=== PATIENT | female | born 1990 | race Two or more races ===

== ENCOUNTER → 2024-10-01 | Outpatient (CLI) | payer OTHER, SELFPAY ==
--- NOTE | 2024-10-01 08:45 | XR_ITS ---
Examination: Screening digital mammography, bilateral Computer aided detection 3-D breast Tomosynthesis, bilateral Date and time of exam: October 01, 2024 0827 hours No priors Indication: Screening, family history, mother breast cancer Technique: Nonmagnified MLO, CC views of the breasts to been obtained, reconstructed from 3-D Tomosynthesis images. R2 computer aided detection program utilized for evaluation of suspicious masses and/or abnormal calcifications. 3-D Tomosynthesis images obtained. Findings: Scattered areas of fibroglandular density Benign calcifications 4 mm circumscribed asymmetry inner right breast CC view, 5 cm from the nipple Impression: BI-RADS Category 0: Incomplete: Need additional imaging evaluation 4 mm circumscribed focal asymmetry inner right breast CC view, recommend follow-up spot tomographic views in her upper quadrant right breast bilateral breast sonography to complete workup
== END | disposition home or self-care (01) ==
LOC: CDIM 08:14
PROVIDERS: PCP Physician Assistant; Referring Provider Physician Assistant; Visit Provider Physician Assistant
DX: Z12.31 Encounter for screening mammogram for malignant neoplasm of breast (principal); N64.89 Other specified disorders of breast
CPT/HCPCS: 77063; 77067

== ENCOUNTER 2024-12-06 16:09 | Emergency (ER) | payer OTHER, SELFPAY ==
[2024-12-06 16:09] VITALS: BMI 31.8
[2024-12-06 16:21] VITALS: BP 126/78; PULSE 108; RESP 16; TEMP 37.1; O2SAT 97
--- NOTE | 2024-12-06 17:05 | EDNOTE_ITS ---
<Statement entered by Keshia Narvaez MD - 12/09/24 14:04> As co-signing physician, I was present and available for consult prn. I concur with the plan and care as documented by the midlevel provider. Upper Respiratory Inf. RME/HPI General Chief Complaint: Flu Like Symptoms Stated Complaint: cough x 3 days Time Seen by Provider: 12/06/24 16:15 Source: patient Arrival date/time: 12/06/24 16:09 34-year-old female presents emergency department complaints of generalized sore throat for 3 days. Patient does not have any fever, she does have some upper chest burning that runs into her throat. Patient did not attempt any interventions or take any OTC medications prior to ED visit. Patient denies any other associated symptoms or aggravating factors. No modifying factors, no radiation, no migration. Mode of arrival: ambulatory Limitations: no limitations Related Data Home Medications ?Medication ?Instructions ?Recorded ?Confirmed diphenhydramine HCl 25 mg tablet 25 mg PO QHS PRN 08/2909/13/23 ([facility]) Previous Rx's ?Medication ?Instructions ?Recorded omeprazole 40 mg capsule,delayed 40 mg PO QDAY #30 cap s 12/06/24 release Allergies Allergy/AdvReac Type Severity Reaction Status Date / Time NKA* Allergy Uncoded 12/06/24 16:13 Review of Systems Review of Systems Systems Reviewed: All systems reviewed, normal except as documented Narrative Review of Systems: Gen: No fever, no chills, no weight loss EYES: No discharge, no visual changes, no pain HEENT: No ear pain, no congestion, + sore throat PULM: No shortness of breath, + cough, no congestion CV: No chest pain, no dyspnea on exertion, no palpitations GI: No nausea, no vomiting, no diarrhea, no pain, no constipation : No frequency, no urgency,? no dysuria Musc/skel: No joint pain, no back pain Skin: No rash? Psyc: No hallucinations, no depression Heme/Lymph: No easy bleeding or bruising tendencies Neuro: No weakness, no headache ED Exam General Limitations: Present no limitations General appearance: Present alert and in no apparent distress Head Head exam: Present atraumatic Eye Eye exam: Present normal appearance, PERRL and EOMI ENT ENT exam: Present normal exam, normal oropharynx and mucous membranes moist Neck Neck exam: Present normal inspection, full ROM and trachea midline Chest Chest inspection: Present normal inspection and symmetric chest wall rise Respiratory Respiratory exam: Present normal lung sounds bilaterally Cardiovascular Cardiovascular exam: Present regular rate, normal rhythm and normal heart sounds Abdominal Exam Abdominal exam: Present soft and normal bowel sounds Extremities Exam Extremities exam: Present normal inspection and full ROM Back Exam Back exam: Present normal inspection and full ROM Neurological Exam Neurological exam: Present alert, oriented X3 and CN II-XII intact Psychiatric Psychiatric exam: Present normal affect and normal mood Skin Skin exam: Present warm, dry, intact and normal color Course Quality Measures none Orders Category Date Time Status Bedside COVID-19 Antigen Test NOW Care 12/06/24 16:39 Completed Bedside Influenza A&B Antigen Test NOW Care 12/06/24 16:39 Completed Strep A Rapid Stat Lab 12/06/24 16:43 Completed Vital Signs Vital signs: Vital Signs Temperature 98.8 F 12/06/24 16:21 Pulse Rate 108 H 12/06/24 16:21 Respiratory Rate 16 12/06/24 16:21 Blood Pressure 126/78 12/06/24 16:21 Pulse Oximetry (%) 97 12/06/24 16:21 Oxygen Delivery Method Room Air 12/06/24 16:21 Upper Respiratory Infection Patient data External records reviewed:: [facility] previous records Clinical information provided by:: patient Social determinants that could affect healthcare access:: none Patient has the following chronic illnesses:: no How is presenting disease/condition affected by chronic disease/condition?: no chronic disease Evaluation data The following diagnostics were reviewed and interpreted by me:: lab results Lab and/or radiology exams considered but not ordered:: no Interpretation Summary: Negative COVID and influenza test Strep steps Medications / Prescriptions Medications or Prescriptions considered but not ordered:: No Medication administrations:: No Consultations Consultation(s) initiated? (list below): No Diagnosis Upper Respiratory Differential Diagnosis: upper respiratory infection, viral infection, bronchitis, influenza and pharyngitis Most likely diagnosis given after review of the tests above:: Sore throat Admission Indicated Admission indicated?: not indicated Admission Request Was there a request for admission?: No Disposition Plan Disposition Plan: Discharge Discharge Attestation Discharge Attestation: The patient and all family members were given an opportunity to ask questions and understood the discharge instructions. Discharge instructions specifically effects, indications for sooner follow up or return to the emergency department, and the expected course of current diagnosis. Patient condition: Stable Discharge Plan Plan Patient Disposition: HOME (Self Care) Patient condition on transfer: Stable Prescriptions/Referrals Prescriptions/Med Rec: New omeprazole 40 mg capsule,delayed release(DR/EC) 40 mg PO QDAY Qty: 30 0RF No Action diphenhydramine HCl [[facility]] 25 mg tablet 25 mg PO QHS PRN Referrals: Ariela Chew PA-C [Primary Care Provider] - In 1 week Problem List Clinical Impression: Acute viral pharyngitis Patient/Caregiver Discharge Instructions Discharge Activity: activity as tolerated Education Materials: Self-Care for Sore Throats Additional Instructions: .Can use OTC NSAID prn pain or fevers. Fluids, soups, tea, honey advised. Use humidifier at nights. Replace toothbrush. -Can also use Mucinex [id number] -Also start topical which can soothe your throat follow up if symptoms persist / worsen over next 2-3 days. Return to the emergency department is any worsening symptoms change in condition. Print Language: Icelandic Stand Alone Forms: Myra Award Info., Patient Portal Info Letter PA/JAMIE Supervising Physician PERRY/JAMIE Supervising Physician: Dr. Mcmillan
[2024-12-06 17:22] LABS: Strep A Rapid Negative (Negative)
== END 2024-12-06 17:58 | disposition home or self-care (01) ==
PROVIDERS: Nurse Practitioner Primary Care; Emergency Provider Emergency Medicine; PCP Physician Assistant
DX: J02.8 Acute pharyngitis due to other specified organisms (principal); B97.89 Other viral agents as the cause of diseases classified elsewhere
CPT/HCPCS: 87400; 87651; 87811; 99283

== ENCOUNTER 2024-12-29 14:10 | Outpatient (RCR) | payer OTHER, SELFPAY ==
--- NOTE | 2024-12-31 04:51 | CTCCONSULT_ITS ---
Patient: MELYSSA RICHARDS : 1990 MR#: [id number] Page 2 of 2 CONSULTATION NOTE DATE OF CONSULTATION: 12/29/2024 NAME: MELYSSA RICHARDS ACCOUNT: [id number] : 1990 AGE: 34 REFERRING PHYSICIAN: Ariela Chew MD PRIMARY PHYSICIAN: Ariela Chew MD HISTORY OF PRESENT ILLNESS: 34-year-old female is referred for family history of breast cancer. Patient was a no-show for her in person visit and was changed to telephone appointment. 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 None Medications Never Reconciled (Reconcile on Approval: ?) ALLERGIES: ASSESSMENT/PLAN: Family history of breast cancer Will refer patient to genetic testing and BRCA1 and BRCA2 testing Patient advised to follow-up with us after she has completed testing and also follow-up with the genetics for counseling Advised her to undergo diagnostic testing for both breasts with the diagnostic mammogram Will make further recommendation after receiving the genetic testing results ORDERS: Hereditary myRisk assessment BRCA 1 and 2 testing Bilateral diagnostic mammogram RETURN TO CLINIC: I will see her back in the clinic in 2 months. BILLING AND COMPLIANCE: I reviewed external records from providers outside my specialty as summarized above. I spent a total of 50 minutes on this patient?s care on the day of their visit excluding time spent related to any billed procedures. This time includes time spent with the patient as well as time spent documenting in the medical record, reviewing patients records and tests, obtaining history, placing orders, communicating with other healthcare professionals, counseling the patient, family or caregiver, and/or care coordination for the diagnoses above. Electronically Signed by: {Object.Sanct_ID*[email or web address]@M}, {Object.Sanct_ID*PnP.Suffix@U} D: {Object.Sanct_Date} T: {Object.Sanct_Time} CC: PCP: Ariela Chew Referring: Ariela Chew This document was completed utilizing speech recognition software. Grammatical errors, random word insertions, pronoun errors, and incomplete sentences are an occasional consequence of this system due to software limitations, ambient noise, and hardware issues. Any formal questions or concerns about the content, text or information contained within the body of this dictation should be directly addressed to the provider for clarification.
== END 2025-01-26 23:59 | disposition home or self-care (01) ==
LOC: SCTC 14:10
PROVIDERS: PCP Physician Assistant; Referring Provider Physician Assistant; Visit Provider Internal Medicine Hematology & Oncology
DX: Z76.89 Persons encountering health services in other specified circumstances (principal); Z80.3 Family history of malignant neoplasm of breast
CPT/HCPCS: 99212; G0463

== ENCOUNTER → 2025-01-21 | Outpatient (CLI) | payer OTHER, SELFPAY ==
--- NOTE | 2025-01-21 | XR_ITS ---
Examination: Diagnostic digital mammography, unilateral, right Computer aided detection 3-D breast Tomosynthesis, unilateral Date and time of exam: January 21 thousand 25 1615 hours INDICATIONS: Mammogram October 01, 2024 4 mm circumscribed focal asymmetry inner right breast CC view Technique: Nonmagnified MLO, CC views of the right breast have been obtained, reconstructed from 3-D Tomosynthesis images. R2 computer aided detection program utilized for evaluation of suspicious masses and/or abnormal calcifications. 3-D Tomosynthesis images obtained. Findings: Scattered areas of fibroglandular density No suspicious mass is noted on the spot compression views Impression: BI-RADS category 2: Benign findings Recommend yearly follow-up mammography
--- NOTE | 2025-01-21 16:13 | XR_ITS ---
Examination: Breast ultrasound complete, bilateral Date and time of exam: January 21, 2025 1620 hours INDICATIONS: Mammogram October 01, 2024 4 mm circumscribed asymmetry inner right breast, family history breast cancer Technique: Real-time grayscale ultrasonographic imaging bilateral breasts, including all 4 quadrants as well as nipple retroareolar and axillary regions. Findings: Sonographic images right breast No cystic or solid mass Sonographic images left breast No cystic or solid mass IMPRESSION: BI-RADS Category 1: Negative study
== END | disposition home or self-care (01) ==
PROVIDERS: PCP Physician Assistant; Referring Provider Internal Medicine Hematology & Oncology; Visit Provider Internal Medicine Hematology & Oncology
DX: R92.321 Mammographic fibroglandular density, right breast (principal); Z80.3 Family history of malignant neoplasm of breast
CPT/HCPCS: 76641; 77061; 77065; G0279

== ENCOUNTER → 2025-01-29 | Outpatient (CLI) | payer OTHER, SELFPAY ==
--- NOTE | 2025-01-29 15:31 | XR_ITS ---
Examination: Knee, left , 3 views Technique: Knee AP, lateral, oblique 3 views Date and time of exam: January 29, 2025 1532 hours INDICATIONS: Injury to the knee 3 days ago, knee pain FINDINGS: No fracture or dislocation Sclerotic areas in the fibular shaft No foreign body IMPRESSION: No fracture or dislocation Recommend 3 month follow-up left knee to document stability of sclerotic change in the proximal fibular shaft
== END | disposition home or self-care (01) ==
PROVIDERS: PCP Physician Assistant; Referring Provider Nurse Practitioner Family; Visit Provider Nurse Practitioner Family
DX: S89.92XA Unspecified injury of left lower leg, initial encounter (principal); X58.XXXA Exposure to other specified factors, initial encounter
CPT/HCPCS: 73562

== ENCOUNTER → 2025-02-24 | Outpatient (CLI) | payer OTHER, SELFPAY ==
--- NOTE | 2025-02-24 12:00 | XR_ITS ---
Exam: MRI knee without contrast, left Date and time of exam: February 24, 2025 1251 hours INDICATIONS: Injury to the knee January 29, 2025 with joint clicking and pain Technique: Multiple axial, coronal, and sagittal sections on the knee have been obtained. T2-Weighted sagittal, fat-suppressed images, TR 3,500, TE 62, T2 weighted coronal fat-saturated images, TR 3,500, TE 62 Proton density sagittal sections, TR 1800, TE 31. T-1 weighted coronal images, TR 524, TE 13.0 Findings: Medial meniscus anterior horn intact. Medial meniscus, body is intact. Posterior horn medial meniscus intact. Lateral meniscus anterior horn is intact Lateral meniscus, body is intact Posterior horn lateral meniscus is intact Anterior cruciate ligament moderate sprain Posterior cruciate ligament appears intact. Knee effusion is small. Quadriceps and patellar tendons appear intact. There is no evidence of tendinosis. Inflammatory change or fracture of Hoffa's fat pad is not seen. Medial patellar facet demonstrates mild thinning. Lateral patellar facet cartilage demonstrates mild thinning. Trochlear cartilage demonstrates mild thinning. Full-thickness fissure defect in the cartilage medial patellar and at the median eminence Marrow signal adequate. Medial collateral ligament appears intact. No meniscocapsular separation is seen. Illiotibial band and fibular collateral ligament are intact. Biceps femoris tendons appear intact. Medial femoral condylar articular cartilage demonstrates mild thinning. Lateral femoral condylar articular cartilage demonstratesmild thinning. Tibial plateau cartilage demonstrates mild thinning. Impression: Moderate sprain anterior cruciate ligament Full-thickness fissure defect in the cartilage medial patella and median eminence of the patella
== END | disposition home or self-care (01) ==
LOC: SMRI 11:29
PROVIDERS: Referring Provider Family Medicine; Visit Provider Family Medicine
DX: S83.512A Sprain of anterior cruciate ligament of left knee, initial encounter (principal); X58.XXXA Exposure to other specified factors, initial encounter; M25.862 Other specified joint disorders, left knee
CPT/HCPCS: 73721

== ENCOUNTER 2025-03-25 08:00 | Outpatient (RCR) | payer OTHER, SELFPAY ==
--- NOTE | 2025-03-18 08:15 | PTNOTE_ITS ---
PT OP Initial Eval Patient Information Outpatient Physical Therapy Treatment Date: 03/18/25 Visit Reasons: left knee sprain Medical Diagnosis: S83.512A Treatment Dx #1: L knee pain Start of Care: 03/18/25 Date of Onset: 01/27/25 Smoking Status Smoking Status: Never smoker Initial Assessment Subjective: Pt is 35 yr old female who hit her L knee on a metal cabinet at work on 01-27-25 and then when she got up from a chair she twisted and felt a pop in the L knee with pain. It swelled up that day and since then she reports background pain and more pain at the end of the day and she points to the medial patella border. Th is limits walking fast. 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 PMH: x2 Imaging: MRI Moderate sprain anterior cruciate ligament, Full-thickness fissure defect in the cartilage medial patella and median eminence of the patella Pt goal: to get rid of the pain and learn exercises to do at home Objective: L knee AROM: Extension: full with mild pain Flexion: 128 deg SLR: 35 deg with pain TTP: moderate of medial patella border Anterior drawer: negative Step down: negative Step up: negative Getting out of chair: negative Bassem's: negative Pain around medial patella with tibial ER and hip adduction Varus stress: mild gapping <5mm Patella compression: positive Assessment: Pt presents with positive patella compression sensitivity and pain of the medial border consistent with hitting the knee on something. Pt requires skilled therapy to meet goals and has fair rehab potential. Short Term and Corporate Director Of Human Resources Goals 1. Ind with HEP 2. Decreased TTP of medial patella border from mod to min 3. Pt will tolerate work shift with <=3/10 L knee pain 4. Pt will walk fast x200' without increase in L knee pain Treatment Plan ?1. Manual therapy ? 2. Therex ? 3. Modalities as indicated, moist heat, ice, estim Frequency and Duration: 2x a week for 3 weeks Certification Dates: 03/18/25 to 06/16/25 Procedure Charges OP PT Eval Mod Complex 30 minutes: Yes
--- NOTE | 2025-03-25 08:47 | PTNOTE_ITS ---
PT Outpatient Daily Note OP Daily Note Outpatient Physical Therapy Treatment Date: 03/25/25 Visit Reasons: left knee sprain Subjective: Pt reports L knee is doing better since initial injury but still has clicking/popping. Objective: Please see flow sheet for ther ex list. Assessment: Pt tolerated interventions well, verbal and tactile cues to perform hip abducti on and avoid flexion during side lying exercise. Plan: Continue with POC. Length of Time (minutes) of Treatment: 30 Minutes Procedure Charges Therapeutic Exercise 30 minutes: Yes
== END 2025-03-28 23:59 | disposition home or self-care (01) ==
LOC: CPTX 08:00
PROVIDERS: PCP Family Medicine; Referring Provider Family Medicine; Visit Provider Family Medicine
DX: M25.562 Pain in left knee (principal); S83.512D Sprain of anterior cruciate ligament of left knee, subsequent encounter; X50.1XXD Overexertion from prolonged static or awkward postures, subsequent encounter
CPT/HCPCS: 97110; 97162

== ENCOUNTER 2025-04-15 13:00 | Outpatient (RCR) | payer OTHER, SELFPAY ==
--- NOTE | 2025-03-31 18:08 | PT.ODAYNRPT ---
PT Outpatient Daily Note OP Daily Note Outpatient Physical Therapy Treatment Date: 03/31/25 Visit Reasons: left knee sprian Subjective: Less knee pain today than last visit Objective: See F/S for therex Assessment: Good knee alignment with step ups and low pain Plan: Continue per POC Length of Time (minutes) of Treatment: 30 Minutes Procedure Charges Therapeutic Exercise 30 minutes: Yes
--- NOTE | 2025-04-02 09:18 | PT.ODAYNRPT ---
PT Outpatient Daily Note OP Daily Note Outpatient Physical Therapy Treatment Date: 04/02/25 Visit Reasons: left knee sprian Subjective: Less knee pain today than last visit Objective: See F/S for therex MT: K-tape patella borders x5' Assessment: Good knee alignment with step ups and pain is about the medial border of patella Plan: Continue per POC Length of Time (minutes) of Treatment: 30 Minutes Procedure Charges Therapeutic Exercise 30 minutes: Yes
--- NOTE | 2025-04-08 08:46 | PT.ODAYNRPT ---
PT Outpatient Daily Note OP Daily Note Outpatient Physical Therapy Treatment Date: 04/08/25 Visit Reasons: left knee sprian Subjective: Pt reports L knee is doing better, feels therapy is helping. Objective: Please see flow sheet for ther ex list. Assessment: Minimal discomfort with squatting exercise, modified squat depth decrease c/o pain. Plan: Continue with pOC. Length of Time (minutes) of Treatment: 30 Minutes Procedure Charges Therapeutic Exercise 30 minutes: Yes
--- NOTE | 2025-04-15 16:05 | PT.ODAYNRPT ---
PT Outpatient Daily Note OP Daily Note Outpatient Physical Therapy Treatment Date: 04/15/25 Visit Reasons: left knee sprian Subjective: Pt reports L knee continues to be painful, continues to have clicking and popping. Objective: Please see flow sheet for ther ex list. Assessment: Pt presents in clinic with 6/10 knee pain. Pt has completed 04/03 authorized viist but continues to have pain, crepitus and pain with ROM. Pt has difficulty prolonged walking, standing, stationay positions, squatting. Plan: At this tie pt will be d/c to follow up with referring doctor for other treatment options. Length of Time (minutes) of Treatment: 30 Minutes Procedure Charges Therapeutic Exercise 30 minutes: Yes
--- NOTE | 2025-05-07 17:57 | PTNOTE_ITS ---
PT OP Progress/Discharge Note Date of Service: 05/07/25 Progress Note/DC Note Progress Note/Discharge Note: DC Note Patient Information Visit Reasons: left knee sprian Service Continue Service or Discharge: Discharge Discharge Date: 05/07/25 Status Assessment: Pt attended the evaluation and 5 Rx sessions and was referred to an product info specialist so she will D/C from therapy here. See last Rx note by Venus Vazquez PTA for details. Plan: D/C
== END 2025-04-27 23:59 | disposition home or self-care (01) ==
LOC: CPTX 13:00
PROVIDERS: PCP Family Medicine; Referring Provider Family Medicine; Visit Provider Family Medicine
DX: M25.562 Pain in left knee (principal); S83.512D Sprain of anterior cruciate ligament of left knee, subsequent encounter; W22.03XD Walked into furniture, subsequent encounter
CPT/HCPCS: 97110

== ENCOUNTER 2025-06-19 13:17 | Outpatient (AMB) | payer OTHER, SELFPAY ==
[2025-06-19 13:32] VITALS: BP 123/85; PULSE 83; RESP 18; TEMP 36; O2SAT 97; BMI 33.9
--- NOTE | 2025-06-19 13:32 | ACNOTE_ITS ---
Vital Signs 06/19/25 13:32 Height 1.6 m Height Method Stated Weight 86.806 kg Weight Measurement Method Standing Scale BMI 33.9 BP 123/85 H Blood Pressure Source Automatic Cuff Blood Pressure Location Right Upper Arm Position Sitting Respiration 18 Pulse 83 Pulse Source Monitor Temp 96.8 F Temp Source Temporal Artery Scan Pulse Oximetry (%) 97 Oxygen Delivery Method Room Air Allergies/Meds Allergies & Medications Allergies NKA* Allergy (Uncoded 12/06/24 16:13) MA Intake Visit Data Collection New Patient or Established: Established Patient (seen at [facility] within 3 years) Seen by Clinical Staff ONLY (RN/MA): No Reason for Visit:: ABDOMINAL PAIN Pain Present Currently: Yes Pain Location: Abdomen Pain scale:: 6 Unpaid Intern Required: No PCP or OBGYN visit in last 3 months: Yes Hx Now: No Do You Feel Safe at Home: Yes Authorities Contacted: N/A Smoking Status Smoking Status: Never smoker Immunization / Flu Flu Vaccine in the Last 12 Months: Yes Flu Vaccine Exclusion Criteria: Already Received Past Medical History Social History SMOKING STATUS: Smoking status: Never smoker SECOND HAND EXPOSURE: second hand exposure: No ALCOHOL: Alcohol Intake: Never Patient Portal Questionaires PHQ-9 PHQ-2 Over the last 2 weeks, how often have you been bothered by any of the following problems? 1. Little interest or pleasure in doing things: not at all Social History Tobacco History Smoking Status: Never smoker Second Hand Smoke Exposure: No Alcohol History Alcohol Intake: Never Substance Use History Substance Use: NONE Domestic Abuse History Do You Feel Safe at Home: Yes Review of Systems Report any current symptoms Only answer those that you have currently: Past Medical History Past Medical History Have you ever been diagnosed with any of the following: History of Present Illness HPI Narrative The patient is a 35-year-old female with no significant past medical history who presents to the [facility] with the chief complaint of right lower abdominal pain. The patient reports that the pain began suddenly yesterday evening, located medially in the right lower quadrant, radiating to the right hip, and is associated with significant discomfort. She notes that this is the first time she has experienced such symptoms. Two days prior to the onset of abdominal pain, the patient experienced burning and pain during urination, which she initially thought might be a urinary tract infection. She expected the symptoms to resolve on their own. The patient last had her menstrual period in June 01, and she denies any ovulation-related pain. The patient denies nausea, vomiting, fever, or constipation. She also denies any history of sexually transmitted diseases and states that she is sexually active, though less likely to be . She has two children, both delivered via section, and reports having developed cholestasis during , which led to a delivery. DDx for acute abdominal pain would include appendicitis, peritonitis, diverticulitis, ovarian torsion, cystitis, UTI, ovulation related pain, PID, endometriosis, musculoskeletal pain. Physical exam is positive for rebound tenderness, positive McBurney sign, bowel sounds present in 4 quadrants.. Patient will need imaging at least abdominal ultrasound, and if needed CT abdomen pelvis also exclude also kidney stones. Patient was referred to ED for further imaging, labs and to exclude any acute causes. Patient care was discussed with attending physician Dr. Rishi Desir MD PGY-2 I have carefully reviewed this document. Due to imperfections in the voice so ftware, there could be grammatical errors including phonetic/typographic errors. This in no way compromises the medical care the patient is receiving Review of Systems Review of Systems Systems Reviewed: All systems reviewed, normal except as documented Objective/Exam Narrative Physical exam: GENERAL: no acute distress, AAO x3, well nourished. HEENT: Head AT/ NC. Mucous membranes moist. PERRL. NECK: Supple, no lymphadenopathy, no carotid bruits. CARDIOVASCULAR: RRR. Normal S1/S2, No m/r/g. No pitting edema of bilateral LEs. RESPIRATORY: CTAB. No wheezing, rhonchi, crackles. GASTROINTESTINAL: Abdomen soft,no palpable masses, there is a rebound tenderness on RUQ, (+) McBurney's sign. Bowel sounds present in all 4 quadrants.No evidence of acute abdomen at this time. Well-appearing. Low suspicions for hepatobiliary disease. MUSCULOSKELETAL:? No cyanosis or edema, no visible joint swelling. NEUROLOGICAL: CN II-XII grossly intact. No focal deficits. Sensation intact, symmetric. PSYCHIATRIC: Awake and alert, not agitated, normal mood and affect. INTEGUMENTARY: No obvious rashes, no jaundice, normal turgor. Assessment & Plan Diagnosis / Problem List (1) Right lower quadrant abdominal pain: Status: Acute Assessment & Plan: Presented with chief complaints of right lower quadrant abdominal pain that started suddenly yesterday 8 out of 10, physical exam is positive for rebound tenderness, positive McBurney sign. DDx for acute abdominal pain would include appendicitis, peritonitis, diverticulitis, ovarian torsion, cystitis, UTI, ovulation related pain, PID, endometriosis, musculoskeletal pain. Plan: Plan is to do labs, UA, ultrasound, pain control, and serial assessment. Patient was send to ED for further evaluation. (2) Burning with urination: Status: Acute Assessment & Plan: started 2 days ago, significantly improved. RLQ pain might be associated with it. Plan: patient was send to ED, and plan is to obtain UA, UC and if needed abx prescription Office Procedures [facility] Level of Care Nursing/Assessment Patient Status: Established Patient Nursing Assessment/Reassessment: Medication Reconciliation, Update PMH in EMR and Vital Signs Coordination of Care: Complex Care and Chronic Disease 1-5, Consent,records obtained, informed consent, Lab and Imaging orders and Results/Orders obtained Established Patient Charge Established Patient Point Assignment: 80 Established Patient Point Charge: Level 3 (80-115)
== END 2025-06-19 14:31 | disposition home or self-care (01) ==
LOC: HODAHC 13:17
PROVIDERS: PCP Family Medicine; Referring Provider Family Medicine; Supervising Provider Student in an Organized Health Care Education/Training Program; Visit Provider Student in an Organized Health Care Education/Training Program
DX: R10.31 Right lower quadrant pain (principal); R30.9 Painful micturition, unspecified
CPT/HCPCS: 99213; G0463

== ENCOUNTER 2025-06-19 15:27 | Emergency (ER) | payer OTHER, SELFPAY ==
[2025-06-19 15:28] VITALS: BMI 33.6
--- NOTE | 2025-06-19 16:10 | PC.NURSE ---
Pt did not answer when name was called in the lobby
[2025-06-19 16:25] VITALS: BP 128/81; PULSE 90; RESP 18; TEMP 36.7; O2SAT 97
--- NOTE | 2025-06-19 16:28 | EDRME_ITS ---
Rapid Medical Screening Exam RME Arrival date/time: 06/19/25 15:27 Chief Complaint: Abdominal Pain Vital signs: Vital Signs Temperature 98.1 F 06/19/25 16:25 Pulse Rate 90 06/19/25 16:25 Respiratory Rate 18 06/19/25 16:25 Blood Pressure 128/81 06/19/25 16:25 Pulse Oximetry (%) 97 06/19/25 16:25 Oxygen Delivery Method Room Air 06/19/25 16:25 Vital signs reviewed by provider: Yes RME Narrative: Patient is a 35-year-old female with medical history notable for remote appendectomy that seen emerged from concerns for right lower quadrant abdominal pain. Denies fevers chills nausea vomiting chest pain epigastric pain melena bloody stools. Does endorse dysuria. Pain is in the right lower quadrant and in the pelvis, radiates to the back. Does endorse some dysuria. No abnormal vaginal discharge, no history of sexually transmitted infections. Patient is currently taking 800 mg of ibuprofen as well as baclofen for pain for a work-re lated injury. Patient does not have any allergies to medications. No drugs alcohol no smoking.
--- NOTE | 2025-06-19 16:37 | XR_ITS ---
Examination: CT abdomen with intravenous contrast CT pelvis with intravenous contrast 2-D coronal reconstructions 2-D sagittal reconstructions Date and time of exam:June 19, 2025, 2039 hours INDICATIONS:. Onset right lower abdominal pain today. CTDI: vol (mGy) 10.2. DLP: (mGycm) 589. Technique: Multiple axial sections of the abdomen and pelvis have been obtained. 64 slice high-resolution scanner used. 3 mm axial sections have been obtained, post intravenous injection 60 cc Isovue 370. 2-D sagittal, coronal reconstructions obtained. Low dose protocols were performed. One or more of the following dose reduction techniques were used; automated exposure control, adjustment of the mA and/or KV according to patient size, use of iterative reconstruction technique. Findings: No focal liver or splenic lesions Gallstones Gallbladder wall appears thickened No pancreatic or adrenal mass No renal or ureteral calculi, no hydronephrosis Aorta normal size 10 mm fat-containing umbilical hernia No pericecal inflammatory changes Colonic diverticulosis, no diverticulitis The appendix does not appear inflamed Anteverted uterus No adnexal mass Urinary bladder mass IMPRESSION: No renal or ureteral calculi, no hydronephrosis No CT findings of appendicitis bowel obstruction or diverticulitis Recommend gallbladder sonography follow-up to exclude calculus cholecystitis
--- NOTE | 2025-06-19 16:37 | XR_ITS ---
Examination: Pelvic ultrasound, transabdominal, complete Technique: Transabdominal ultrasound of the pelvis performed using grayscale imaging Date and time of exam: June 19, 2025, 1740 hours. INDICATIONS: Right pelvic pain beginning 2 days ago FINDINGS: Uterus 9.8 cm endometrial stripe 0.1 cm No uterine mass or intrauterine gestation. Right ovary 3.4 cm Duraflow, 19 x 16 x 19 mm cyst. Left ovary 3.1 cm arterial flow IMPRESSION: Right ovarian simple cyst 19 x 16 x 19 mm. No uterine mass or intrauterine gestation.
--- NOTE | 2025-06-19 16:39 | EDRME_ITS ---
Rapid Medical Screening Exam [facility] Arrival date/time: 06/19/25 15:27 Patient is a 35-year-old female with medical history notable for remote appendectomy that seen emerged from concerns for right lower quadrant abdominal pain. Denies fevers chills nausea vomiting chest pain epigastric pain melena bloody stools. Does endorse dysuria. Pain is in the right lower quadrant and in the pelvis, radiates to the back. Does endorse some dysuria. No abnormal vaginal discharge, no history of sexually transmitted infections. Patient is currently taking 800 mg of ibuprofen as well as baclofen for pain for a work- related injury. Patient does not have any allergies to medications. No drugs alcohol no smoking. Chief Complaint: Abdominal Pain Vital signs: Vital Signs Temperature 98.1 F 06/19/25 16:25 Pulse Rate 90 06/19/25 16:25 Respiratory Rate 18 06/19/25 16:25 Blood Pressure 128/81 06/19/25 16:25 Pulse Oximetry (%) 97 06/19/25 16:25 Oxygen Delivery Method Room Air 06/19/25 16:25 E Narrative: Patient is a 35-year-old female medical history notable for previous pyelonephritis to the Emergency Department concerns for right lower quadrant, pelvic pain, and dysuria. Denies fevers chills nausea vomiting chest pain epigastric pain melena bloody stools. Does endorse dysuria. No drugs alcohol or smoking. Patient has a history of C-sections in the past, is passing gas, having regular bowel movements. No recent travel no sick contacts. Patient was seen by her primary care doctor earlier today and was sent to the emergency department to get a CT scan to assess for appendicitis and diverticulitis.
--- NOTE | 2025-06-19 16:46 | PC.NURSE ---
GIVEN WATER TO DRINK FOR ULTRASOUND
[2025-06-19 17:11] LABS: Collection Type, Urine Clean Catch
[2025-06-19] MEDS: ACETAMINOPHEN 325 MG TABLET 650 MG PO (17:59)
[2025-06-19 18:04] LABS: Basophils # (Auto) 0.1 Thou/mm3 (0.0-0.2); Basophils % (Auto) 0 % (0-2.5); Eosinophils # (Auto) 0.2 Thou/mm3 (0.0-0.5); Eosinophils % (Auto) 2 % (0-10); Hematocrit 32.0 % (36.0-46.0); Hemoglobin 9.9 g/dL (12.0-16.0); Immature Granulocytes Auto 0.03 Thou/mm3 (0.00-0.00); Lymphocytes # (Auto) 3.5 Thou/mm3 (1.0-4.8); Lymphocytes % (Auto) 32 % (10-50); Mean Corpuscular HGB Conc 30.9 g/dl (31.0-37.0); Mean Corpuscular Hemoglobin 24.8 pg (25.0-35.0); Mean Corpuscular Volume 80 fL (80-100); Monocytes # (Auto) 0.7 Thou/mm3 (0.0-0.8); Monocytes % (Auto) 7 % (0-12); Neutrophils # (Auto) 6.6 Thou/mm3 (1.8-7.7); Neutrophils % (Auto) 59 % (37-80); Nucleated Red Blood Cell # 0.00 Thou/mm3 (0.00-0.00); Nucleated Red Blood Cell % 0 /100 WBC (0); Platelet Count 405 Thou/mm3 (140-440); RDW Standard Deviation 45.8 fL (36.4-46.3); Red Blood Count 4.00 Miln/mm3 (4.00-5.20); White Blood Count 11.2 Thou/mm3 (3.6-11.0)
[2025-06-19 18:20] LABS: Alanine Aminotransferase 73 U/L (10-49); Albumin, Serum 4.2 gm/dL (3.5-5.0); Albumin/Globulin Ratio 1.5 (1.2-2.2); Alkaline Phosphatase 112 U/L (46-116); Anion Gap 8 (7-16); Aspartate Amino Transferase 57 U/L (0-34); BUN/Creatinine Ratio 15 Ratio (12-20); Bilirubin,Total 0.5 mg/dL (0.3-1.2); Blood Urea Nitrogen 9 mg/dL (9-23); Calcium 9.2 mg/dL (8.3-10.6); Calcium (Corrected) 9.2 mg/dL (8.5-10.1); Carbon Dioxide 26.3 mMol/L (20.0-31.0); Chloride 103 mMol/L (98-107); Creatinine (Component) 0.6 mg/dL (0.6-1.3); Estimated Creatinine Clearance 137.5 mL/min (>60); Globulin 2.8 gm/dL (2.3-3.5); Glucose 98 mg/dL (74-106); Lipase 36 U/L (12-53); Osmolality,Calculated 272 (275-295); Potassium 4.2 mMol/L (3.4-5.1); Sodium 137 mMol/L (136-145); Total Protein 7.0 gm/dL (5.7-8.2); eGFR > 60 See Note
[2025-06-19 18:23] LABS: HCG,Qualitative Serum Negative
[2025-06-19 19:45] LABS: Amorphous Crystals,Urine Present (Absent); Bacteria,Urine Rare; Bilirubin,Urine Negative (Negative); Blood,Urine 2+ (Negative); Clarity,Urine Clear (Clear/Hazy); Color,Urine Yellow (Lt Yel-Yel); Culture Indicated,Urine Not Indicated; Glucose, Urine Negative (Negative); Ketones,Urine Negative (Negative); Leukocyte Esterase,Urine Negative (Negative); Nitrite,Urine Negative (Negative); PH,Urine 6.0 (5.0-7.0); Protein,Urine Negative (Neg - Trace); RBC,Urine 34 /hpf (0-3); Specific Gravity,Urine 1.028 (1.001-1.035); Squamous Epithelial Cell,Urine 9 /hpf (0-5); Urobilinogen,Urine Negative mg/dL (0.0-1.0); WBC,Urine 2 /hpf (0-5)
[2025-06-19 20:45] VITALS: BP 132/82; PULSE 86; RESP 18; TEMP 36.7; O2SAT 97
--- NOTE | 2025-06-20 01:19 | PD.EDABDPN ---
ED Abdominal Pain RME/HPI General Chief Complaint: Abdominal Pain Stated complaint: RIGHT LOWER ABD PIAN SINCE YESTERDAY Time seen by provider: 06/19/25 17:26 Arrival date/time: 06/19/25 15:27 RME / HPI RME / HPI narrative: Patient is a 35-year-old female medical history notable for previous pyelonephritis to the Emergency Department concerns for right lower quadrant, pelvic pain, and dysuria. Denies fevers chills nausea vomiting chest pain epigastric pain melena bloody stools. Does endorse dysuria. No drugs alcohol or smoking. Patient has a history of C-sections in the past, is passing gas, having regular bowel movements. No recent travel no sick contacts. Patient was seen by her primary care doctor earlier today and was sent to the emergency department to get a CT scan to assess for appendicitis and diverticulitis. I have seen and evaluated the patient. Patient complains of 1 day history of right lower quadrant versus upper pelvic pain. No dysuria or hematuria. No vaginal discharge. No fevers. Related Data Home Medications ?Medication ?Instructions ?Recorded ?Confirmed diphenhydramine HCl 25 mg tablet 25 mg PO QHS PRN 09/13/23 09/13/23 (Olesya-Seadrift Plus Allergy) Previous Rx's ?Medication ?Instructions ?Recorded omeprazole 40 mg capsule,delayed 40 mg PO QDAY #30 caps 12/06/24 release Allergies Allergy/AdvReac Type Severity Reaction Status Date / Time No Known Allergies Allergy Verified 06/19/25 15:29 Review of Systems Review of Systems Systems Reviewed: All systems reviewed, normal except as documented ED Exam Narrative Physical exam: Generally patient is alert no obvious distress, heart regular rate and rhythm, lungs clear to auscultation equal bilaterally, abdomen soft bowel sounds present nondistended right adnexal tenderness without rebound. No McBurney's point tenderness., Neurologic exam no focal motor or sensory deficits cranial nerves II through XII gross intact, skin is cool pale and dry, extremities show no edema Course Quality Measures none Orders Category Date Time Status CT Screening NOW Care 06/19/25 16:[address] abdomen pelvis w con Stat Exams 06/19/25 16:37 Completed US pelvic complete Stat Exams 06/19/25 16:37 Completed CBC Stat Lab 06/19/25 17:19 Completed CMP [Comprehensive Metabolic Panel] Stat Lab 06/19/25 17:19 Completed HCG,Qualitative Serum Stat Lab 06/19/25 17:19 Completed Lipase Stat Lab 06/19/25 17:19 Completed UA, C/S IF [Urinalysis, C/S if Indicated] Stat Lab 06/19/25 16:45 Completed Acetaminophen Tab [Tylenol Tab] Med 06/19/25 16:39 Discontinued 650 mg PO X1 ONE HYDROcodone*/APAP 5/325 [[place] 5/325] Med 06/19/25 16:27 Discontinued 1 tab PO X1 ONE Vital Signs Vital signs: Vital Signs Temperature 98.1 F 06/19/25 16:25 Pulse Rate 90 06/19/25 16:25 Respiratory Rate 18 06/19/25 16:25 Blood Pressure 128/81 06/19/25 16:25 Pulse Oximetry (%) 97 06/19/25 16:25 Oxygen Delivery Method Room Air 06/19/25 16:25 Abdominal Pain MDM MDM Narrative MDM Narrative:: I reviewed all the patient's labs. Urine is not infected. is negative. There is no leukocytosis. LFTs are normal. Pelvic ultrasound showed evidence for a right ovarian cyst without torsion. CT scan done the abdomen and pelvis without contrast showed gallstones without pericholecystic fluid. Patient has no right upper quadrant abdominal pain. I do not believe this patient to have gallbladder disease at this time other than the stones that are showing up on the CT scan. Patient's pain seems to be in the area of the right ovary where the cyst exists. Patient will be discharged to take Tylenol and ibuprofen for pain. Follow-up with her doctor. Return to ER as needed or if condition worsens. Patient data External records reviewed:: [facility] previous records Clinical information provided by:: patient Social determinants that could affect healthcare access:: none Patient has the following chronic illnesses:: None How is presenting disease/condition affected by chronic disease/condition?: no chronic disease Evaluation data The following diagnostics were reviewed and interpreted by me:: lab results and radiology exam(s) Lab and/or radiology exams considered but not ordered:: None Interpretation Summary: None Medications / Prescriptions Medications or Prescriptions considered but not ordered:: None Medication administrations:: Medication Administration History Discontinued Medications Acetaminophen (Acetaminophen 325 Mg Tablet) 650 mg PO X1 ONE Stop: 06/19/25 16:40 Last Admin: 06/19/25 17:59 Dose: 650 mg Documented By: Hydrocodone Bitart/Acetaminophen (Hydrocodone/Apap 5/325 Tablet) 1 tab PO X1 ONE Stop: 06/19/25 16:28 Last Admin: 06/19/25 18:01 Dose: Not Given Documented By: Non-Admin Reason: Cancelled by Provider As above Consultations Consultation(s) initiated? (list below): No Diagnosis Differential diagnosis abdominal pain: other Most likely diagnosis given after review of the tests above:: None Admission Indicated Admission indicated?: not indicated Admission Request Was there a request for admission?: No Disposition Plan Disposition Plan: Discharge Discharge Attestation Discharge Attestation: The patient and all family members were given an opportunity to ask questions and understood the discharge instructions. Discharge instructions specifically effects, indications for sooner follow up or return to the emergency department, and the expected course of current diagnosis. Patient condition: Stable Discharge Plan Plan Patient Disposition: HOME (Self Care) Prescriptions/Referrals Prescriptions/Med Rec: No Action diphenhydramine HCl [Olesya-Seadrift Plus Allergy] 25 mg tablet 25 mg PO QHS PRN omeprazole 40 mg capsule,delayed release(DR/EC) 40 mg PO QDAY Qty: 30 0RF Referrals: Ariela Chew PA-C [Primary Care Provider] - In 1 week Problem List Clinical Impression: Ovarian cyst, Cholelithiasis Patient/Caregiver Discharge Instructions Education Materials: What Are Gallstones, Ovarian Cysts Additional Instructions: You may take Tylenol and/or ibuprofen as needed for pain. Follow-up with your doctor. Return to ER as needed or if condition worsens. Print Language: Greenlandic Stand Alone Forms: [employer] Info., Patient Portal Info Letter
[2025-06-20 01:30] VITALS: BP 122/76; PULSE 72; RESP 16; TEMP 36.7; O2SAT 98
== END 2025-06-20 01:31 | disposition home or self-care (01) ==
PROVIDERS: Emergency Medicine; Emergency Provider Emergency Medicine; PCP Physician Assistant
DX: K80.20 Calculus of gallbladder without cholecystitis without obstruction (principal); N83.201 Unspecified ovarian cyst, right side
CPT/HCPCS: 36415; 74177; 76856; 80053; 81001; 83690; 84703; 85025; 99283; A4649; Q9967; A9270

== ENCOUNTER 2025-07-15 13:00 | Outpatient (AMB) | payer OTHER, SELFPAY ==
[2025-07-15 13:11] VITALS: BP 120/79; PULSE 88; RESP 19; TEMP 36.4; O2SAT 98; BMI 33.7
--- NOTE | 2025-07-15 13:11 | ACNOTE_ITS ---
<Statement entered by Pascual Shah MD - 07/22/25 14:34> Attending note: I, Pascual Shah MD, attest that I was physically present for the ross portions of the service and evaluated the patient with the resident and I reviewed and discussed the case with the resident and agree with the resident's findings and plans of care as documented above. Vital Signs 07/15/25 13:11 Height 1.6 m Height Method Measured Weight 86.296 kg Weight Measurement Method Standing Scale BMI 33.7 BP 120/79 Blood Pressure Source Automatic Cuff Blood Pressure Location Right Upper Arm Position Sitting Respiration 19 Pulse 88 Pulse Source Monitor Temp 97.5 F Temp Source Temporal Artery Scan Pulse Oximetry (%) 98 Oxygen Delivery Method Room Air Allergies/Meds Allergies & Medications Allergies No Known Allergies Allergy (Verified 06/19/25 15:29) MA Intake Visit Data Collection New Patient or Established: Established Patient (seen at [facility] within 3 years) Seen by Clinical Staff ONLY (RN/MA): No Reason for Visit:: follow up Pain Present Currently: No Data Analytics Analyst Required: No PCP or OBGYN visit in last 3 months: Yes Date of Last PCP or OBGYN visit: 06/19/25 Hx Now: No Smoking Status Smoking Status: Never smoker Immunization / Flu Flu Vaccine in the Last 12 Months: No Flu Vaccine Exclusion Criteria: No Exclusion Criteria Past Medical History Past Medical History CARDIAC: Negative Cardiac Disorders RESPIRATORY: Negative Asthma GENITOURINARY: Negative Renal Disease ENDOCRINE: Negative Diabetes Mellitus Type 2 HEMATOLOGIC: Negative Sickle Cell Disease Social History SMOKING STATUS: Smoking status: Never smoker SECOND HAND EXPOSURE: second hand exposure: No ALCOHOL: Alcohol Intake: Never Patient Portal Questionaires PHQ-9 PHQ-2 Over the last 2 weeks, how often have you been bothered by any of the following problems? 1. Little interest or pleasure in doing things: not at all Social History Tobacco History Smoking Status: Never smoker Second Hand Smoke Exposure: No Alcohol History Alcohol Intake: Never Substance Use History Substance Use: NONE Review of Systems Report any current symptoms Only answer those that you have currently: Past Medical History Past Medical History Have you ever been diagnosed with any of the following: Respiratory Problems Asthma: No Genital/Urinary Problems Renal Disease: No Endocrine Problems Diabetes Mellitus Type 2: No Blood Problems Sickle Cell Disease: No History of Present Illness JAE Walker is a 35 y/o female with PMHx of Obesity, , previous pyleonephritis and chronic anemia who comes in for a follow up from the ED. Her last visit was concerning for appendicitis and R abdominal pathology in which she was sent directly from the outpatient setting to the ER. She was then worked up at the ER which showed some gallbladder thickening on CT scan, however did not have follow up gallbladder US. She also had a pelvic US which showed a small cyst. Today she has no complaints of abdominal pain. She denies any dysuria. She is wondering about further workup of her abdominal pain. She says she has had chronic anemia, and did not know she had blood in her urine at the time. She was not mensturating at the time of the urinanalysis. She also says her period is about 4-5 days, and they are not heavy. No other complaints at this time. Review of Systems Review of Systems Narrative Review of Systems: 12 point ROS reviewed and is otherwise negative unless stated directly in the HPI Objective/Exam Narrative Physical exam: General: AAOx3, NAD, morbidly obese female, pleasant HEENT: Moist mucous membranes, conjunctiva clear, EOMI, PERRLA, Cardiovascular: S1, S2, radial pulses +2 bilat, RRR Pulmonary: CTAB bilat no cough, no wheezing GI: No tenderness to light or deep palpitation, no guarding, rigidity, rebound tenderness or distension Extremities: No presence of trace or pitting edema in lower extremities bilaterally, dorsalis pedis pulses +2 bilaterally Neuro: AAOx3, no focal motor or sensory deficits in the UE or LE bilat Psych: Good judgement, thought and behavior Assessment & Plan Diagnosis / Problem List (1) Encounter for general adult medical examination with abnormal findings: Status: Acute Assessment & Plan: Has not had labs previously Plan: TSH A1c Lipid Panel CMP CBC (2) Calculus of gallbladder with acute cholecystitis without obstruction: Status: Acute Assessment & Plan: Gallbladder thickening on previous CT Will need to see if there are stones to evaluate for outpatient cholecystectomy Plan: US abdomen complete (3) Normocytic anemia: Status: Acute Assessment & Plan: Hgb chronically low, Hgb ~9, Normocytic Since this is chronic, will need to broaden workup despite it not being microcytic or macrocytic Plan: Ferritin Iron Studies Peripheral blood smear Folate B12 (4) Hematuria: Status: Acute Qualifiers: Hematuria type: asymptomatic microscopic Qualified Code(s): R31.21 - Asymptomatic microscopic hematuria Assessment & Plan: Seen as previous at 2017 Most recent UA shows +2 blood and 36 RBC Need further evaluation in addition to anemia workup Plan: UA Orders: Orders CBC Today Z00.01 - Encounter for general adult medical examination with abnormal findings Path Review Blood Smear Today Z00. - Encounter for general adult medical examination with abnormal findings Iron Panel Today Z00. - Encounter for general adult medical examination with abnormal findings Lipid Panel Today Z00. - Encounter for general adult medical examination with abnormal findings Urinalysis Today R31.9 - Hematuria, unspecified Ambulatory Hemoglobin A1C Today Z00. - Encounter for general adult medical examination with abnormal findings Comprehensive Metabolic Panel Today Z00. - Encounter for general adult medical examination with abnormal findings Ferritin Today Z00. - Encounter for general adult medical examination with abnormal findings Thyroid Stimulating Hormone Today Z00. - Encounter for general adult medical examination with abnormal findings US abdomen Today K80.00 - Calculus of gallbladder with acute cholecystitis without obstruction Folate Today D64.9 - Anemia, unspecified Vitamin B12 Today D64.9 - Anemia, unspecified Office Procedures [facility] Level of Care Nursing/Assessment Patient Status: Established Patient Nursing Assessment/Reassessment: Medication Reconciliation, Update PMH in EMR and Vital Signs Coordination of Care: Complex Care and Chronic Disease 1-5, Education Complex Pt/Fam, Lab and Imaging orders and Results/Orders obtained Established Patient Charge Established Patient Point Assignment: 95 Established Patient Point Charge: Level 3 (81-115)
== END 2025-07-15 13:50 | disposition home or self-care (01) ==
LOC: HODAHC 13:00
PROVIDERS: Supervising Provider Internal Medicine
DX: K82.8 Other specified diseases of gallbladder (principal); D64.9 Anemia, unspecified; R31.29 Other microscopic hematuria
CPT/HCPCS: 99213; G0463

== ENCOUNTER → 2025-07-27 | Outpatient (CLI) | payer OTHER, SELFPAY ==
--- NOTE | 2025-07-27 08:42 | XR_ITS ---
Examination: Abdomen sonogram, complete Date and time of exam: July 27, 2025, 0855 hours INDICATIONS: History cholelithiasis. Technique: Multiple real-time grayscale transabdominal sonographic images of the abdomen have been obtained. Findings: Multiple gallstones and gallbladder sludge Gallbladder wall weight 4 0 cm Common bile duct 0.6 cm no definite stones Pancreatic head 2.1 cm Liver 14 cm fatty infiltration Normal hepatopedal portal venous flow Patent IVC Right kidney 10.1 cm cortex 1.6 cm Left kidney 11.4 cm cortex 2.1 cm Moderate scar formation Spleen 11.0 cm IMPRESSION: Cholelithiasis Thickened gallbladder wall and enlarged common bile duct, consider MRCP follow-up
[2025-07-27 10:15] LABS: Basophils # (Auto) 0.0 Thou/mm3 (0.0-0.2); Basophils % (Auto) 0 % (0-2.5); Eosinophils # (Auto) 0.3 Thou/mm3 (0.0-0.5); Eosinophils % (Auto) 3 % (0-10); Hematocrit 33.2 % (36.0-46.0); Hemoglobin 10.3 g/dL (12.0-16.0); Immature Granulocytes Auto 0.03 Thou/mm3 (0.00-0.00); Lymphocytes # (Auto) 2.5 Thou/mm3 (1.0-4.8); Lymphocytes % (Auto) 28 % (10-50); Mean Corpuscular HGB Conc 31.0 g/dl (31.0-37.0); Mean Corpuscular Hemoglobin 24.3 pg (25.0-35.0); Mean Corpuscular Volume 78 fL (80-100); Monocytes # (Auto) 0.4 Thou/mm3 (0.0-0.8); Monocytes % (Auto) 5 % (0-12); Neutrophils # (Auto) 5.7 Thou/mm3 (1.8-7.7); Neutrophils % (Auto) 64 % (37-80); Nucleated Red Blood Cell # 0.00 Thou/mm3 (0.00-0.00); Nucleated Red Blood Cell % 0 /100 WBC (0); Platelet Count 406 Thou/mm3 (140-440); RDW Standard Deviation 45.0 fL (36.4-46.3); Red Blood Count 4.24 Miln/mm3 (4.00-5.20); White Blood Count 8.9 Thou/mm3 (3.6-11.0)
[2025-07-27 10:35] LABS: Path Review Blood Smear Sent to Pathologist
[2025-07-27 10:38] LABS: Ferritin 21 ng/mL (7.3-270.7); Iron 45 mcg/dL (50-170); Percent Iron Saturation 12 % (20-55); Total Iron Binding Capacity 373 mcg/dL (250-425); Unsaturated Iron Binding 328 (225-295)
[2025-07-27 10:42] LABS: Alanine Aminotransferase 32 U/L (10-49); Albumin, Serum 4.3 gm/dL (3.5-5.0); Albumin/Globulin Ratio 1.4 (1.2-2.2); Alkaline Phosphatase 105 U/L (46-116); Anion Gap 9 (7-16); Aspartate Amino Transferase 14 U/L (0-34); BUN/Creatinine Ratio 17 Ratio (12-20); Bilirubin,Total 0.5 mg/dL (0.3-1.2); Blood Urea Nitrogen 12 mg/dL (9-23); Calcium 9.5 mg/dL (8.3-10.6); Calcium (Corrected) 9.5 mg/dL (8.5-10.1); Carbon Dioxide 25.4 mMol/L (20.0-31.0); Cardiac Risk Estimate 2.6 RATIO (3.7-5.6); Chloride 105 mMol/L (98-107); Cholesterol 140 mg/dL (132-200); Creatinine (Component) 0.7 mg/dL (0.6-1.3); Globulin 3.1 gm/dL (2.3-3.5); Glucose 96 mg/dL (74-106); HDL Cholesterol 53 mg/dL (40-60); LDL Cholesterol,Calculated 73 mg/dL (0-130); Osmolality,Calculated 277 (275-295); Potassium 4.1 mMol/L (3.4-5.1); Sodium 139 mMol/L (136-145); Thyroid Stimulating Hormone 1.73 uIU/mL (0.55-4.78); Total Protein 7.4 gm/dL (5.7-8.2); Triglycerides 71 mg/dL (30-150); eGFR > 60 See Note
[2025-07-27 10:45] LABS: Folate 12.11 ng/mL (>5.38); Vitamin B12 1280 pg/mL (211-911)
[2025-07-27 11:24] LABS: Glucose Estimated Average 111 mg/dL (80-131); Hemoglobin A1C 5.5 % Hgb (4.8-6.0)
[2025-07-27 11:52] LABS: Collection Type, Urine Clean Catch
[2025-07-27 12:27] LABS: Bilirubin,Urine Negative (Negative); Blood,Urine 1+ (Negative); Clarity,Urine Clear (Clear/Hazy); Color,Urine Lt-Yellow (Lt Yel-Yel); Glucose, Urine Negative (Negative); Ketones,Urine Negative (Negative); Leukocyte Esterase,Urine Negative (Negative); Nitrite,Urine Negative (Negative); PH,Urine 7.0 (5.0-7.0); Protein,Urine Negative (Neg - Trace); RBC,Urine 5 /hpf (0-3); Specific Gravity,Urine 1.018 (1.001-1.035); Squamous Epithelial Cell,Urine < 1 /hpf (0-5); Urobilinogen,Urine Negative mg/dL (0.0-1.0); WBC,Urine < 1 /hpf (0-5)
== END | disposition home or self-care (01) ==
LOC: CDIM 08:39
PROVIDERS: PCP Physician Assistant
DX: K80.20 Calculus of gallbladder without cholecystitis without obstruction (principal); K82.8 Other specified diseases of gallbladder; Z00.01 Encounter for general adult medical examination with abnormal findings
CPT/HCPCS: 36415; 76700; 80053; 80061; 81001; 82607; 82728; 82746; 83036; 83540; 83550; 84443; 85025

== ENCOUNTER 2025-08-18 11:13 | Outpatient (RCR) | payer OTHER, SELFPAY ==
--- NOTE | 2025-08-18 11:57 | PT.OIERPT ---
PT OP Initial Eval Patient Information Outpatient Physical Therapy Treatment Date: 08/18/25 Visit Reasons: LEFT KNEE PAIN Medical Diagnosis: Left Knee Pain Treatment Dx #1: Left Knee Pain Start of Care: 08/18/25 Date of Onset: 01/27/25 Smoking Status Smoking Status: Never smoker Initial Assessment Subjective: Pt is a 35 y/o female reports of left knee pain (8/10) after she hit her knee in a metal cabinet 01/27/25. Pt's past MRI showed defect in the medial patella cartilage. Pt has seen surgeon 07/21/25, however, not much came out of the appt. Pt sent a letter to her after a few days that he's retiring in Aug. Pt still has difficulty with prolonged standing, walking, chores, self care, work duties, sitting, and performing recreational activities. Objective: Left Knee AROM: all motions are WNL with pain towards end range extension Left Knee MMTs: grossly 4-/5 Left Hip MMTs: grossly 4-/5 Special Test (+) ant copression test Knee Cap Mobility: WFL Assessment: Pt demonstrate left knee pain leading to difficulty with ADLs. Pt will attempt physical therapy if pain persist Pt will be refer back to provider for further consultation. Short Term and Global Account Director Goals 1) Increase left knee AROM WNL in 6 wks to be able to perform chores 2) Decrease knee pain to 2/10 in 6 wks to be able to resume normal work duties 3) Increase left knee MMTs grossly to 4/5 in 6 wks to be able to perform stairs and steps 4) Increase left hip MMTs grossly to 4/5 in 6 wks to be able to walk more than 30 mins 5) Indep with HEP Treatment Plan 1) Manual Therapy 2) Therapeutic Activities 3) Therapeutic Exercises 4) Modalities (ice, heat) 5) Balance Training Frequency and Duration: 2 x wk for 6 wks Certification Dates: 08/18/25 to 11/18/25 Procedure Charges OP PT Eval Mod Complex 30 minutes: Yes
--- NOTE | 2025-09-29 13:08 | PT.ODS1RPT ---
PT OP Progress/Discharge Note Date of Service: 09/29/25 Progress Note/DC Note Progress Note/Discharge Note: DC Note Patient Information Visit Reasons: LEFT KNEE PAIN Service Discharge Date: 09/29/25 Status Assessment: Pt has been seen for initial evaluation only. Pt contact 09/29/25 and will like to be d/c. Pt is seeking 2nd opinion. Pt did not meet set goals in therapy; thank you for your referrals
== END 2025-08-28 23:59 | disposition home or self-care (01) ==
LOC: CPTX 11:13
PROVIDERS: PCP Nurse Practitioner Family; Referring Provider Nurse Practitioner Family; Visit Provider Nurse Practitioner Family
DX: M25.562 Pain in left knee (principal); S89.92XD Unspecified injury of left lower leg, subsequent encounter; W22.8XXD Striking against or struck by other objects, subsequent encounter
CPT/HCPCS: 97162

== ENCOUNTER 2025-08-19 13:06 | Outpatient (AMB) | payer OTHER, SELFPAY ==
[2025-08-19 13:14] VITALS: BP 122/83; PULSE 90; RESP 16; TEMP 36.7; O2SAT 98; BMI 33.9
--- NOTE | 2025-08-19 13:14 | ACNOTE_ITS ---
Vital Signs 08/19/25 13:14 Height 1.6 m Height Method Stated Weight 86.75 kg Weight Measurement Method Standing Scale BMI 33.9 BP 122/83 Blood Pressure Source Automatic Cuff Blood Pressure Location Right Upper Arm Position Sitting Respiration 16 Pulse 90 Pulse Source Monitor Temp 98.0 F Temp Source Temporal Artery Scan Pulse Oximetry (%) 98 Oxygen Delivery Method Room Air Allergies/Meds Allergies & Medications Allergies No Known Allergies Allergy (Verified 08/19/25 13:15) Medication Reconciliation diphenhydramine HCl 25 mg tablet (Olesya-[place] Plus Allergy) 25 mg PO QHS PRN 09/13/23 [History Confirmed 08/19/25] omeprazole 40 mg capsule,delayed release 40 mg PO QDAY #30 caps 12/06/24 [Rx Confirmed 08/19/25] MA Intake Visit Data Collection New Patient or Established: Established Patient (seen at [facility] within 3 years) Seen by Clinical Staff ONLY (RN/MA): No Reason for Visit:: F/U Labs & Abdominal US Pain Present Currently: No Pain scale:: 0 Pain Scale Used: [place]var[place]-Cantrell/[employer] Representative Required: No PCP or OBGYN visit in last 3 months: Yes Hx Now: No Do You Feel Safe at Home: Yes Smoking Status Smoking Status: Never smoker Immunization / Flu Flu Vaccine in the Last 12 Months: Yes Flu Vaccine Exclusion Criteria: Already Received Past Medical History Past Medical History CARDIAC: Negative Cardiac Disorders RESPIRATORY: Negative Asthma GENITOURINARY: Negative Renal Disease ENDOCRINE: Negative Diabetes Mellitus Type 2 HEMATOLOGIC: Negative Sickle Cell Disease Social History SMOKING STATUS: Smoking status: Never smoker SECOND HAND EXPOSURE: second hand exposure: No ALCOHOL: Alcohol Intake: Never Patient Portal Questionaires PHQ-9 PHQ-2 Over the last 2 weeks, how often have you been bothered by any of the following problems? 1. Little interest or pleasure in doing things: not at all Social History Tobacco History Smoking Status: Never smoker Second Hand Smoke Exposure: No Alcohol History Alcohol Intake: Never Substance Use History Substance Use: NONE Domestic Abuse History Do You Feel Safe at Home: Yes Review of Systems Report any current symptoms Only answer those that you have currently: Past Medical History Past Medical History Have you ever been diagnosed with any of the following: Respiratory Problems Asthma: No Genital/Urinary Problems Renal Disease: No Endocrine Problems Diabetes Mellitus Type 2: No Blood Problems Sickle Cell Disease: No History of Present Illness JAE Emersona is a 35-year-old female with past medical history of obesity, prior C- sections, previous episode of pyelonephritis, and chronic iron deficiency anemia who presents to [facility] on 08/19/2025 for a follow up of labs and abdominal US results done on 07/27/2025. Labs reviewed include CBC which showed Hgb 10.3, MCV 78, iron panel consistent with iron deficiency with low iron level 45, low iron saturation 12%. Peripheral smear showed microcytic hypochromic anemia. Vitamin B12 and folate levels normal. CMP was normal. A1c was 5.5. Lipid panel showed TC 140, LDL 73, HDL 53, TG 71. TSH normal 1.73. UA showed 1+ blood and 5 RBCs, negative for infection. Reviewed abdominal US which showed cholelithiasis and normal CBD and gallbladder wall (images reviewed myself as well as the report). No indication of active cholecystitis. Patient reports feeling well at this time. She was previously having short episodes of right upper quadrant pain lasting a few minutes at a time, associa melvin with eating fatty or greasy foods. She has been altering her diet to try and avoid these foods and noticed a decrease in these episodes. Discussed options if patient were to have continuous worsening episodes of gallbladder attacks despite diet, she may need surgery evaluation for an elective cholecystectomy. If there is persistent pain combined with fever, nausea, and vomiting patient should return to the hospital for evaluation. Patient would like to continue diet alteration and conservative management at this time. Reviewed anemia and encouraged patient to increase iron rich foods such as dark leafy greens, lean meats, and legumes. Advised starting OTC multivitamin daily. Patient denies pinkish urine or any active notable bleeding. Patient denies any dysuria, bladder pain, or flank pain. No history of kidney stones although she has had a history of pyelonephritis. She also says her period is about 4-5 days, and they are not heavy. No other complaints at this time. Patient is otherwise continuing to follow with Occupational Health for a worker's comp injury on her left knee and is working with Physical Therapy. Patient is following up with Dr. Parra tomorrow. Objective/Exam Narrative Physical exam: Physical Exam General: Awake and in no acute distress. Conversational and non-toxic appearing. HEENT: Normocephalic, atraumatic, mucous membranes moist. Heart: Regular rate and rhythm, normal S1 and S2, no murmurs. Lungs: Clear to auscultation with no wheezing or crackles. Abdomen: Soft, nondistended, nontender, positive bowel sounds. ?No guarding or rebound tenderness. Neurologic: Alert and oriented x3, no gross neurological deficit, and patient able to move all 4 extremities. Extremities: No edema. Skin: No rash or ecchymoses. Assessment & Plan Diagnosis / Problem List (1) Cholelithiasis without obstruction: Status: Chronic Qualifiers: Cholelithiasis location: gallbladder Cholecystitis presence: without cholecystitis Qualified Code(s): K80.20 - Calculus of gallbladder without cholecystitis without obstruction Assessment & Plan: Reviewed abdominal US 07/27/2025 which showed cholelithiasis and normal CBD and gallbladder wall (images reviewed myself as well as the report). No indication of active cholecystitis. Patient is reporting reduced episodes with diet changes. Plan: - Continue conservative and dietary management - Consider surgical consultation should symptoms worsen or persist despite lifestyle changes (2) Encounter for general adult medical examination with abnormal findings: Status: Acute Assessment & Plan: 07/27/2025 CMP was normal. A1c was 5.5. Lipid panel showed TC 140, LDL 73, HDL 53, TG 71. TSH normal 1.73. Plan: - Continue diet and exercise (3) Hematuria: Status: Acute Qualifiers: Hematuria type: asymptomatic microscopic Qualified Code(s): R31.21 - Asymptomatic microscopic hematuria Assessment & Plan: Seen as previous in 2017 as well. 06/19/2025 UA showed 2+ blood and 36 RBC 07/27/2025 UA showed 1+ blood and 5 RBC, negative for bacteria or leukocyte esterase Patient denies notable dysuria, burning, , or flank pains. Plan: - As recent UA is within normal limits, continue symptomatic observation (4) Iron deficiency anemia: Status: Acute Qualifiers: Iron deficiency anemia type: inadequate dietary iron intake Qualified Code(s): D50.8 - Other iron deficiency anemias Assessment & Plan: 07/27/2025 CBC showed Hgb 10.3, MCV 78, iron panel consistent with iron deficiency with low iron level 45, low iron saturation 12%. Vitamin B12 and folate levels normal. Peripheral smear showed microcytic hypochromic anemia. Patient appears to have anemia dating back to 2017. Patient currently does not report any symptoms of fatigue, shortness of breath, or dizziness. Plan: - Start [id number] multivitamin - Increase dietary intake of iron Office Procedures [facility] Level of Care Nursing/Assessment Patient Status: Established Patient Nursing Assessment/Reassessment: Medication Reconciliation, Update PMH in EMR and Vital Signs Coordination of Care: Complex Care/Chronic Disease 5 or more, Education Complex Pt/Fam, Consent,records obtained, informed consent, Education Simp Pt/Fam, Lab and Imaging orders, Results/Orders obtained and Staff clarify orders Established Patient Charge Established Patient Point Assignment: 135 Established Patient Point Charge: Level 4 (120-155) TB Screening LTBI Screening: Has patient traveled, was born, or resided for at least 1 month, or frequent border crossing into a country with an elevated TB rate: No Immunosuppression, current or planned (HIV, organ transplant, treated with biologic agents, steroids, or other immunosuppression medication): No Close contact to someone with infectious TB disease during lifetime: No Homelessness or incarceration, current or past: No TB testing indicated at this time (at least 1 yes above): No
== END 2025-08-19 13:43 | disposition home or self-care (01) ==
LOC: HODAHC 13:06
PROVIDERS: PCP Physician Assistant; Referring Provider Physician Assistant; Supervising Provider Internal Medicine; Visit Provider Student in an Organized Health Care Education/Training Program
DX: K80.20 Calculus of gallbladder without cholecystitis without obstruction (principal); D50.9 Iron deficiency anemia, unspecified; R31.21 Asymptomatic microscopic hematuria
CPT/HCPCS: 99214; G0463

== ENCOUNTER 2025-09-05 21:13 | Observation (INO) | payer OTHER, SELFPAY ==
[2025-09-05 21:14] VITALS: BMI 30.9
[2025-09-05 21:33] VITALS: BP 141/90; PULSE 102; RESP 20; TEMP 36.4; O2SAT 100
--- NOTE | 2025-09-05 21:37 | XR_ITS ---
Examination: Abdomen sonogram, Limited Date and time of exam: September 05, 2025, 2154 hours INDICATIONS: Epigastric pain beginning 1 month ago. Technique: Real-time tapia scale transabdominal sonographic images of the upper abdomen obtained. Findings: Gallstones, gallbladder wall 0.38 cm although the gallbladder is contracted Common bile duct 0.3 cm Pancreatic head 2.3 cm Liver 13.2 cm fatty infiltration Normal hepatopetal portal venous flow Patent IVC IMPRESSION: Cholelithiasis Suggest HIDA scan or MRCP follow-up to exclude cholecystitis
[2025-09-05 22:08] LABS: Basophils # (Auto) 0.1 Thou/mm3 (0.0-0.2); Basophils % (Auto) 1 % (0-2.5); Eosinophils # (Auto) 0.2 Thou/mm3 (0.0-0.5); Eosinophils % (Auto) 2 % (0-10); Hematocrit 32.6 % (36.0-46.0); Hemoglobin 10.3 g/dL (12.0-16.0); Immature Granulocytes Auto 0.04 Thou/mm3 (0.00-0.00); Lymphocytes # (Auto) 3.2 Thou/mm3 (1.0-4.8); Lymphocytes % (Auto) 30 % (10-50); Mean Corpuscular HGB Conc 31.6 g/dl (31.0-37.0); Mean Corpuscular Hemoglobin 24.8 pg (25.0-35.0); Mean Corpuscular Volume 79 fL (80-100); Monocytes # (Auto) 0.6 Thou/mm3 (0.0-0.8); Monocytes % (Auto) 5 % (0-12); Neutrophils # (Auto) 6.6 Thou/mm3 (1.8-7.7); Neutrophils % (Auto) 62 % (37-80); Nucleated Red Blood Cell # 0.00 Thou/mm3 (0.00-0.00); Nucleated Red Blood Cell % 0 /100 WBC (0); Platelet Count 428 Thou/mm3 (140-440); RDW Standard Deviation 45.6 fL (36.4-46.3); Red Blood Count 4.15 Miln/mm3 (4.00-5.20); White Blood Count 10.6 Thou/mm3 (3.6-11.0)
[2025-09-05 22:27] LABS: Alanine Aminotransferase 51 U/L (10-49); Albumin, Serum 4.6 gm/dL (3.5-5.0); Albumin/Globulin Ratio 1.4 (1.2-2.2); Alkaline Phosphatase 126 U/L (46-116); Anion Gap 10 (7-16); Aspartate Amino Transferase 27 U/L (0-34); BUN/Creatinine Ratio 10 Ratio (12-20); Bilirubin,Total 0.3 mg/dL (0.3-1.2); Blood Urea Nitrogen 8 mg/dL (9-23); Calcium 9.1 mg/dL (8.3-10.6); Calcium (Corrected) 9.1 mg/dL (8.5-10.1); Carbon Dioxide 24.4 mMol/L (20.0-31.0); Chloride 105 mMol/L (98-107); Creatinine (Component) 0.8 mg/dL (0.6-1.3); Estimated Creatinine Clearance 98.8 mL/min (>60); Globulin 3.3 gm/dL (2.3-3.5); Glucose 112 mg/dL (74-106); Lipase 36 U/L (12-53); Osmolality,Calculated 276 (275-295); Potassium 3.8 mMol/L (3.4-5.1); Sodium 139 mMol/L (136-145); Total Protein 7.9 gm/dL (5.7-8.2); eGFR > 60 See Note
[2025-09-05 22:47] LABS: Collection Type, Urine Clean Catch
[2025-09-05 23:02] LABS: Bacteria,Urine Rare; Bilirubin,Urine Negative (Negative); Blood,Urine 3+ (Negative); Clarity,Urine Turbid (Clear/Hazy); Color,Urine Yellow (Lt Yel-Yel); Glucose, Urine Negative (Negative); HCG Qualitative,Urine Negative; Ketones,Urine Negative (Negative); Leukocyte Esterase,Urine Negative (Negative); Nitrite,Urine Negative (Negative); PH,Urine 6.0 (5.0-7.0); Protein,Urine 1+ (Neg - Trace); RBC,Urine 38 /hpf (0-3); Specific Gravity,Urine 1.033 (1.001-1.035); Squamous Epithelial Cell,Urine 12 /hpf (0-5); Urobilinogen,Urine Negative mg/dL (0.0-1.0); WBC,Urine 6 /hpf (0-5)
--- NOTE | 2025-09-05 23:06 | PRELIM_ITS ---
Gallbladder ultrasound. September 05, 2025 at 2154 hours Clinical history: Abdominal pain. Right upper quadrant / epigastric pain x1 month with nausea. Comparison: No prior study is available for comparison. Findings: The visualized liver demonstrates increased echogenicity with smooth contour. No evidence of mass or intrahepatic ductal dilatation. The main portal vein is patent and demonstrates hepatopetal flow. Multiple large calculi are noted with posterior shadowing within the gallbladder. The gallbladder wall is mildly thickened measuring 4 mm. No pericholecystic fluid is identified. The common duct is normal in caliber at 3 mm. No free fluid is demonstrated on the submitted images. The pancreas is unremarkable to the extent visualized. The inferior vena cava to the extent visualized is within normal limits. Impression: 1. Acute calculous cholecystitis. Recommend clinical correlation. 2. Fatty infiltration of the liver. Report Electronically Signed By: Sarika Mcdermott 09/05/2025 11:05:32 PM [EST]
--- NOTE | 2025-09-05 23:35 | PD.EDABDPN ---
ED Abdominal Pain RME/HPI General Chief Complaint: Abdominal Pain Stated complaint: RUQ ABD PAIN Time seen by provider: 09/05/25 21:34 Arrival date/time: 09/05/25 21:13 This is a case of 35-year-old female with history of gallstone since May came in in the emergency room due to right upper quadrant abdominal pain today on and off patient states that the pain started 4 weeks which become worse today associated with nausea vomiting patient have no medical history aside from gallstone denies any diarrhea constipation or blood in stool denies any fever or chills Limitations: no limitations Related Data Home Medications ?Medication ?Instructions ?Recorded ?Confirmed diphenhydramine HCl 25 mg tablet 25 mg PO QHS PRN 09/13/23 08/19/25 ([place]lesya-[place] Plus Allergy) Previous Rx's ?Medication ?Instructions ?Recorded omeprazole 40 mg capsule,delayed 40 mg PO QDAY #30 caps 12/06/24 release Allergies Allergy/AdvReac Type Severity Reaction Status Date / Time No Known Allergies Allergy Verified 09/05/25 21:20 Review of Systems Constitutional Constitutional: Reports system reviewed and no additional complaints, except as documented and Reports as per HPI Cardiovascular Cardiovascular: Reports system reviewed and no additional complaints, except as documented and Reports as per HPI Respiratory Respiratory: Reports system reviewed and no additional complaints, except as documented and Reports as per HPI Gastrointestinal Gastrointestinal: Reports system reviewed and no additional complaints, except as documented, Reports as per HPI, Reports abdominal pain and Reports vomiting Genitourinary Genitourinary: Reports system reviewed and no additional complaints, except as documented and Reports as per HPI Neurologic Neurologic: Reports system reviewed and no additional complaints, except as documented and Reports as per HPI Past Medical History Past Medical History CARDIAC: Negative Cardiac Disorders RESPIRATORY: Negative Asthma GENITOURINARY: Negative Renal Disease ENDOCRINE: Negative Diabetes Mellitus Type 2 HEMATOLOGIC: Negative Sickle Cell Disease Social History SMOKING STATUS: Never smoker SECOND HAND EXPOSURE: No ED Exam Narrative Physical exam: Patient is awake alert oriented not in distress nontoxic looking well-hydrated well-nourished General Limitations: Present no limitations General appearance: Present alert and in no apparent distress Head Head exam: Present atraumatic and normal inspection Eye Eye exam: Present normal appearance, PERRL and EOMI ENT ENT exam: Present normal exam, normal oropharynx and mucous membranes moist Neck Neck exam: Present normal inspection, full ROM and trachea midline; Absent tenderness, meningismus, lymphadenopathy or thyromegaly Chest Chest inspection: Present normal inspection and symmetric chest wall rise; Absent tenderness Respiratory Respiratory exam: Present normal lung sounds bilaterally; Absent respiratory distress, wheezes, stridor, accessory muscle use or prolonged expiratory phase Cardiovascular Cardiovascular exam: Present regular rate, normal rhythm and normal heart sounds; Absent bradycardia, tachycardia, irregular rhythm, systolic murmur or diastolic murmur Abdominal Exam Abdominal exam: Present soft, tenderness (Moderate tenderness right upper quadrant), normal bowel sounds and Mccarthy's sign; Absent distention, guarding, rebound, rigidity, diminished bowel sounds, hyperactive bowel sounds, hypoactive bowel sounds, organomegaly, obturator sign, Rovsing's sign, tenderness at McBurney's Point, mass, pulsatile mass or hernia Extremities Exam Extremities exam: Present normal inspection and full ROM Back Exam Back exam: Present normal inspection and full ROM Neurological Exam Neurological exam: Present alert, oriented X3, CN II-XII intact, normal gait and reflexes normal; Absent motor sensory deficit Psychiatric Psychiatric exam: Present normal affect and normal mood Skin Skin exam: Present warm, dry, intact, normal color and other (Excellent skin turgor) Course Quality Measures none Orders Category Date Time Status COVID-19 Screening Questionnaire NOW Care 09/05/25 23:31 Active COVID-19 Screening Questionnaire NOW Care 09/05/25 23:37 Active Decision to Admit X1 Care 09/05/25 23:31 Active Insert IV NOW Care 09/05/25 23:36 Active US gall bladder Stat Exams 09/05/25 21:37 Taken CBC Stat Lab 09/05/25 21:54 Completed Comprehensive Metabolic Panel Stat Lab 09/05/25 21:54 Completed HCG Qualitative,Urine Stat Lab 09/05/25 22:40 Completed Lipase Stat Lab 09/05/25 21:54 Completed Urinalysis Stat Lab 09/05/25 22:40 Completed Morphine* Inj Med 09/05/25 23:31 Discontinued 4 mg IVP X1 ONE Ondansetron Inj [Zofran Inj] Med 09/05/25 23:30 Discontinued 4 mg IVP X1 ONE Pantoprazole Inj [Protonix Inj] Med 09/05/25 23:30 Discontinued 40 mg IVP X1 ONE Sodium Chloride 0.9% 1000 ml [Ns] 1,000 ml Med 09/05/25 23:30 Active IV 999 mls/hr Vital Signs Vital signs: Vital Signs Temperature 97.6 F 09/05/25 21:33 Pulse Rate 102 H 09/05/25 21:33 Respiratory Rate 20 09/05/25 21:33 Blood Pressure 141/90 H 09/05/25 21:33 Pulse Oximetry (%) 100 09/05/25 21:33 Oxygen Delivery Method Room Air 09/05/25 21:33 Oxygen saturation is 100 in the room air Abdominal Pain MDM MDM Narrative MDM Narrative:: This is a case of 35-year-old female with history of gallstone since May came in in the emergency room due to right upper quadrant abdominal pain today on and off patient states that the pain started 4 weeks which become worse today associated with nausea vomiting patient have no medical history aside from gallstone denies any diarrhea constipation or blood in stool denies any fever or chills physical examination patient is awake alert oriented not in distress nontoxic looking well-hydrated well-nourished patient has no signs and symptoms of sepsis no dehydration patient noted to have moderate tenderness on the right upper quadrant no guarding no rebound no rigidity but with positive Mccarthy's negative psoas negative straight and negative Rovsing's negative McBurney's negative CVA tenderness blood test showed no leukocytosis no anemia kidney function is normal patient bilirubin is normal patient AST is normal ALT and alkaline phos is elevated urinalysis is normal patient is not lipase is normal patient ultrasound showed acute calculous cholecystitis with fatty infiltration of the liver based on my physical examination and history I called the surgeon on-call Dr. Torres discussed patient condition history and physical examination relayed the result of the blood test and imaging gave admitting orders to the registered nurse for possible surgery I discussed with the patient the treatment plan and admission and agreed Patient data External records reviewed:: [facility] previous records Clinical information provided by:: patient Social determinants that could affect healthcare access:: none Patient has the following chronic illnesses:: None How is presenting disease/condition affected by chronic disease/condition?: no chronic disease Evaluation data The following diagnostics were reviewed and interpreted by me:: lab results and radiology exam(s) Lab and/or radiology exams considered but not ordered:: Reviewed Interpretation Summary: Reviewed Medications / Prescriptions Medications or Prescriptions considered but not ordered:: Given Medication administrations:: Medication Administration History Sodium Chloride (Ns) 1,000 mls @ 999 mls/hr IV .Q1H1M ONE Stop: 09/06/25 00:30 Discontinued Medications Morphine Sulfate (Morphine Sulf Inj 4 Mg/Ml Vial) 4 mg IVP X1 ONE Stop: 09/05/25 23:32 Ondansetron HCl (Ondansetron Inj 2 Mg/Ml Inj 2 Ml) 4 mg IVP X1 ONE; Protocol Stop: 09/05/25 23:31 Pantoprazole Sodium (Pantoprazole Inj 40 Mg Vial) 40 mg IVP X1 ONE Stop: 09/05/25 23:31 Given Consultations Consultation(s) initiated? (list below): No Diagnosis Differential diagnosis abdominal pain: abdominal pain, calculus of kidney, gastroenteritis, pancreatitis, small bowel obstruction and other (Cholelithiasis) Most likely diagnosis given after review of the tests above:: Acute cholecystitis Admission Indicated Admission indicated?: indicated Explain why admission is indicated or not indicated:: Cholecystitis Admission Request Was there a request for admission?: Yes Admission Attestation Admission request attestation: Discussed case with [] from Hospitalist service regarding admission. Discussed patients ED course, exam findings, labs, and radiology results. The Hospitalist [agrees,declines] to accept the patient for admission. Disposition Plan Disposition Plan: Admit Discharge Plan Plan Patient Disposition: Admit Acute Care w/in Hospital Prescriptions/Referrals Prescriptions/Med Rec: No Action diphenhydramine HCl [[place]lesya-[place] Plus Allergy] 25 mg tablet 25 mg PO QHS PRN omeprazole 40 mg capsule,delayed release(DR/EC) 40 mg PO QDAY Qty: 30 0RF Referrals: No Primary/Family,Physician [Primary Care Provider] - In 1 week Problem List Clinical Impression: Acute calculous cholecystitis, Fatty liver Patient/Caregiver Discharge Instructions Education Materials: Nonalcoholic Fatty Liver ..., ED Cholecystitis, Confirmed Print Language: Frisian Stand Alone Forms: Myra Award Info., Patient Portal Info Letter PA/PRIVATE CHEF Supervising Physician PA/PRIVATE CHEF Supervising Physician: Dr. Argentina Benson
[2025-09-05] MEDS: SODIUM CHLORIDE 0.9% 1000 ML 1,000 ML 100 ML IV (23:59)
[2025-09-06] VITALS (12 sets, daily range): BP systolic 99–125; BP diastolic 56–75; PULSE 73–90; RESP 16–20; TEMP 36.1–36.8; O2SAT 93–99; BMI 33.9
[2025-09-06] MEDS: MORPHINE SULF INJ 4 MG/ML VIAL IVP ×2 (08:10)
[2025-09-06] MEDS: ONDANSETRON INJ 2 MG/ML INJ 2 ML 4 MG IVP ×3 (08:15→10:56)
--- NOTE | 2025-09-06 08:25 | PC.NURSE ---
pt. down to surgery, pt. [id number], ambulated to [facility] with stand-by assist, VSS, no complaints at this time, consent signed in chart, pre-op checklist completed, family at bedside.
--- NOTE | 2025-09-06 08:42 | PD.SURHP ---
[facility] Date of Admission 09/05/25 23:37 Chief Complaint Chief Complaint: Patient is admitted with a diagnosis of acute calculous cholecystitis HPI History of present illness revealed that the patient's pain started Sunday and it persisted during the following day and she came to the emergency room on Sunday evening she was found to have a tenderness in the right upper quadrant and ultrasound showed gallstones with acute cholecystitis. Patient denies any jaundice. She has had a diagnosis of cholelithiasis since 2019 but she was not aware of it. She denied any chills but she had 1 episode of vomiting on Sunday. Patient denies any history of gallstones in the family. Patient's past medical history revealed that she had a history of anemia which was attributed to iron deficiency and hematuria and pyelonephritis. Her past surgery consisted of 2 section. Review of Systems Neurologic Neurologic: Reports system reviewed and no additional complaints, except as documented and Reports as per [facility] Past Medical History Past Medical History NEUROLOGIC: Negative Seizures CARDIAC: Negative Cardiac Disorders or Congestive Heart Failure RESPIRATORY: Negative Respiratory Disorders, Chronic Obstructive Pulmonary Disease (COPD) or Asthma GASTROINTESTINAL: Positive Gall Bladder Disease GENITOURINARY: Negative Renal Disease REPRODUCTIVE: Positive Previous Pregnancies (2) ENDOCRINE: Negative Diabetes Mellitus Type 1 or Diabetes Mellitus Type 2 HEMATOLOGIC: Positive Anemia; Negative Sickle Cell Disease OTHER HISTORY: Negative Blood Transfusions, Blood Transfusion Reaction or Anesthesia Reactions Surgical History SURGICAL: Positive Section (2) Social History SMOKING STATUS: Never smoker SECOND HAND EXPOSURE: No Meds Home Medications and Allergies Home Medications ?Medication ?Instructions ?Recorded ?Confirmed ?Type ibuprofen 800 mg tablet 800 mg PO Q8H PRN pain 09/06/25 09/06/25 History Allergies Allergy/AdvReac Type Severity Reaction Status Date / Time No Known Allergies Allergy Verified 09/05/25 21:20 Exam Vital Signs Temp Pulse Resp BP Pulse Ox O2 Del Method 97.8 F 84 16 113/67 98 Room Air 09/06/25 08:00 09/06/25 08:00 09/06/25 08:00 09/06/25 08:00 09/06/25 08:00 09/06/25 08:00 Narrative Exam Physical examination revealed slightly obese female who is 5 foot 3 inches tall weighing 191 pounds with BMI of 33.9. Her vital signs are normal Constitutional Constitutional: mild distress Routine Abdominal Exam Comments: Abdomen showed some tenderness on upper portion on palpation Routine Rectal Exam Comments: Deferred Routine Exam Comments: Deferred Routine Extremities Exam Comments: Within normal limits Results Results: Laboratory Laboratory Narrative: Patient's laboratory workup was within normal limits. Her liver functions were slightly elevated Results: Imaging Imaging narrative: Ultrasound of the gallbladder showed acute calculous cholecystitis Assessment & Plan Additional Assessment Additional comments: Impression: Acute calculous cholecystitis Mild obesity Plan Plan: I advised the patient to undergo laparoscopic cholecystectomy because of continuing pain for almost 2 days now. Patient has had this gallstones for some time but she was never really having symptoms until this Sunday. I explained to her in detail about the procedure of laparoscopic cholecystectomy including potential complications like bile duct injury requiring further surgery. Other complications like bile leakage from the liver bed and bleeding and need for open cholecystectomy were discussed with the patient. She is agreeable. The procedure is scheduled as an emergency today Quality Measures Quality Measures none
--- NOTE | 2025-09-06 10:31 | PD.SUROPNT ---
Date of Procedure 09/06/25 Pre Op Diagnosis Symptomatic cholelithiasis with acute cholecystitis Post Op Diagnosis Same Procedure Laparoscopic cholecystectomy Findings Patient is found to have a distended gallbladder with 2 large stones when numerous adhesions from the omentum covering the gallbladder making it very difficult to dissect out Procedure Description After endotracheal anesthesia was given the patient was placed in supine position and the abdomen was prepped with chloroprep solution and draped in a sterile manner. After time out was performed I injected a few cc of of half percent Marcaine with epinephrine below the umbilicus and I made an incision for about 3 cm in length. The fascia was cleaned and Veress needle was inserted to create a pneumoperitoneum up to 15 mmHg. Then introduced a 12 mm trocar and a 10 mm camera through the fascia and I inspected the intra-abdominal organs as well as the gallbladder and the liver. Another 5 mm trocar was inserted in the epigastric region under direct vision after injecting some local anesthesia. At this time the patient was kept in reverse Trendelenburg position with the left lateral tilt. The third 5 mm trocar was inserted over the mid axillary line under direct vision and a Joaquin and Gediana grasper was used to hold the fundus of the gallbladder. The retraction was carried out by the executive staff assistant moving the fundus of the gallbladder towards the right shoulder of the patient to create enough traction. I placed a another 5 mm trocar in the midaxillary line just lateral to the rectus muscle under direct vision. I used a fenestrated grasper to retract the neck of the gallbladder laterally towards the patient's right hip. The Calot's triangle was exposed and I achieved the critical view of safety as follows: I dissected out the fatty tissue from the hepatocystic triangle and cleared this area. I also dissected inferior and posterior to the gallbladder to identify the cystic duct and the gallbladder wall. Then superiorly I dissected along the cystic plate up to lower one third third of the gallbladder to lift the gallbladder from the liver. At this time I confirmed that only 2 structures entering the gallbladder were cystic artery and the cystic duct. The common duct was seen distally but no dissection was carried out around the duct. I did not see any need for operative cholangiogram in this patient. The cystic duct was clipped doubly and then divided and cystic artery was similarly dealt with. Then the gallbladder was removed from the liver bed using Harmonic chirag to control the small blood vessels as the dissection proceeded. Then the gallbladder was from the liver bed completely and delivered through the umbilical port using an Endopouch. The liver bed was coagulated with cautery to obtain satisfactory hemostasis. The trocars were pulled out from the abdominal cavity and the fascia at the umbilical incision was closed with interrupted 0 Ethibond. Subcutaneous tissues was closed with 3-0 chromic and injected a few cc of half percent Marcaine with epinephrine and the skin was closed with interrupted 4-0 nylon stitches at all the trocar sites. Dressing was applied with 2 x 2 and Tegaderm. Patient tolerated the procedure well and returned to recovery room in stable condition. Anesthesia GETA Pathology / specimen Other IVF Infused 800 Estimated Blood Loss 50 Condition Stable Disposition PACU Surgeon Clarissa Torres MD Surgical Staff Operation Date: 09/06/25 08:45 Case Staff Anesthesiologist: Dung Rogers RN First Assistant: Heidi Arguello
--- NOTE | 2025-09-06 10:35 | SUR.PHASEI ---
1035: Pt. arrived with oral airway in place, vitals stable, breathing unlabored, no signs of distress, dressing to ABD CDI, no active bleed noted, report received from MD Rogers and Brenda LOPEZ.
--- NOTE | 2025-09-06 11:08 | SUR.PHASEI ---
1106: Pt. AAOx4, vitals stable, breathing unlabored, no complaint of pain or nausea, dressing to ABD CDI, no active bleed noted, gave report to Tegan LOPEZ prior to transfer to room 358. Family made aware of transfer to room.
--- NOTE | 2025-09-06 11:10 | PC.NURSE ---
pt. back from sx, s/p lap adriano w/ 4 incision sites all CDI, pt is complaining of mild nausea was given Zofran @1056 in PACU, VSS, no complaints of pain. family at bedside. will continue updated plan of care.
[2025-09-06] MEDS: SODIUM CHLORIDE 0.9% 1000 ML 1,000 ML 100 ML IV ×2 (11:34→20:44)
--- NOTE | 2025-09-06 17:50 | PC.NURSE ---
serosanguinous drainage noted on dressing, dressing was fully soaked, at the belly button incision site. md Rivera made aware, per md change dressing, secure tighter with tape and monitor for continuous drainage. Will follow through with orders
[2025-09-06] MEDS: IBUPROFEN TAB 400 MG TABLET 800 MG PO (19:13)
[2025-09-07] VITALS: BP 110/64; PULSE 80; RESP 18; TEMP 36.5; O2SAT 97
[2025-09-07 04:00] VITALS: BP 117/72; PULSE 73; RESP 18; TEMP 36.6; O2SAT 97
[2025-09-07 04:50] VITALS: PULSE 80; RESP 20; RESP 98
[2025-09-07 05:24] LABS: Basophils # (Auto) 0.0 Thou/mm3 (0.0-0.2); Basophils % (Auto) 0 % (0-2.5); Eosinophils # (Auto) 0.0 Thou/mm3 (0.0-0.5); Eosinophils % (Auto) 0 % (0-10); Hematocrit 28.2 % (36.0-46.0); Immature Granulocytes Auto 0.04 Thou/mm3 (0.00-0.00); Lymphocytes # (Auto) 1.7 Thou/mm3 (1.0-4.8); Lymphocytes % (Auto) 16 % (10-50); Mean Corpuscular HGB Conc 31.2 g/dl (31.0-37.0); Mean Corpuscular Hemoglobin 24.4 pg (25.0-35.0); Mean Corpuscular Volume 78 fL (80-100); Monocytes # (Auto) 0.4 Thou/mm3 (0.0-0.8); Monocytes % (Auto) 4 % (0-12); Neutrophils # (Auto) 8.6 Thou/mm3 (1.8-7.7); Neutrophils % (Auto) 80 % (37-80); Nucleated Red Blood Cell # 0.00 Thou/mm3 (0.00-0.00); Nucleated Red Blood Cell % 0 /100 WBC (0); Platelet Count 385 Thou/mm3 (140-440); RDW Standard Deviation 45.0 fL (36.4-46.3); Red Blood Count 3.60 Miln/mm3 (4.00-5.20); White Blood Count 10.7 Thou/mm3 (3.6-11.0)
[2025-09-07 05:34] LABS: Hemoglobin 8.8 g/dL (12.0-16.0)
[2025-09-07] MEDS: SODIUM CHLORIDE 0.9% 1000 ML 1,000 ML 100 ML IV (05:54)
[2025-09-07] MEDS: IBUPROFEN TAB 400 MG TABLET 800 MG PO (05:54)
[2025-09-07 05:57] LABS: Alanine Aminotransferase 49 U/L (10-49); Albumin, Serum 3.8 gm/dL (3.5-5.0); Alkaline Phosphatase 91 U/L (46-116); Aspartate Amino Transferase 31 U/L (0-34); Bilirubin,Direct 0.1 mg/dL (0.0-0.3); Bilirubin,Total 0.3 mg/dL (0.3-1.2); Total Protein 6.2 gm/dL (5.7-8.2)
[2025-09-07 07:38] VITALS: PULSE 84; RESP 20; RESP 98
[2025-09-07 08:00] VITALS: BP 134/77; PULSE 86; RESP 18; TEMP 36.7; O2SAT 99
--- NOTE | 2025-09-07 09:40 | PD.SURPROG ---
Documentation for date of: 09/07/25 Subjective Subjective Brief History: History of present illness revealed that the patient's pain started Sunday and it persisted during the following day and she came to the emergency room on Sunday evening she was found to have a tenderness in the right upper quadrant and ultrasound showed gallstones with acute cholecystitis. Patient denies any jaundice. She has had a diagnosis of cholelithiasis since 2019 but she was not aware of it. She denied any chills but she had 1 episode of vomiting on Sunday. Patient denies any history of gallstones in the family. Patient's past medical history revealed that she had a history of anemia which was attributed to iron deficiency and hematuria and pyelonephritis. Her past surgery consisted of 2 section. Narrative: The patient is feeling much better this morning after rest during the night. Exam Vital Signs Temp Pulse Resp BP Pulse Ox O2 Del Method O2 Flow Rate 98.1 F 86 18 134/77 H 99 Room Air 2 09/07/25 08:00 09/07/25 08:00 09/07/25 08:00 09/07/25 08:00 09/07/25 08:00 09/07/25 08:00 09/06/25 10:50 Her vital signs are normal Routine Abdominal Exam Comments: Abdominal examination shows good bowel sounds. There was some bleeding at the umbilical site which has been dressed Results Results: Laboratory Laboratory Narrative: Laboratory results are within normal limits. Hemoglobin is down to 8.8 but this may be due to hemodilution Assessment & Plan Assessment Additional comments: Impression: Stable recovery following laparoscopic cholecystectomy Plan Plan: We shall discharge patient today and follow her up in my office in 10 days PROCEDURES: Procedures Laparoscopic cholecystectomy
[2025-09-07 12:00] VITALS: BP 117/69; PULSE 69; RESP 17; TEMP 36.9; O2SAT 100
== END 2025-09-07 12:04 | disposition home or self-care (01) ==
LOC: SERX 23:39 → S3NX 09-06 02:44 → SERHOLD 09-10 07:59
PROVIDERS: Nurse Practitioner Family; Admitting Provider Surgery; Emergency Provider Emergency Medicine; Visit Provider Surgery
PROC: 0FT44ZZ Resection of Gallbladder, Percutaneous Endoscopic Approach (ICD-10-PCS; CPT 47562; principal; 2025-09-06 08:30)
DX: K80.12 Calculus of gallbladder with acute and chronic cholecystitis without obstruction (principal); E66.9 Obesity, unspecified; Z68.33 Body mass index [BMI] 33.0-33.9, adult
CPT/HCPCS: 47562; 36415; 76705; 80053; 80076; 81001; 81025; 83690; 84484; 85025; 96361; 96374; 96375; 96376; 99283; A4217; A4649; G0378; J0131; J0690; J2250; J2270; J2405; J2470; J2704; J3010; J3490; J7030; A9270